=== PATIENT | female | born 1985 | race Caucasian/White ===

== ENCOUNTER 2018-06-26 00:04 | Emergency (ER) | payer OTHER ==
[~2018-06-26] VITALS: Ht 162.6 cm; Wt 108.9 kg
[~2018-06-26 00:04] MED LIST: PRENATAL PO
[2018-06-26] MEDS ORDERED: AMOXICILLIN 50500 MG PO (00:14)
[2018-06-26 00:54] LABS: HEMATOCRIT 32.7 % (37.0-47.0); HEMOGLOBIN 10.5 gm/dL (12.0-15.0); MCH 22.8 pg (26.0-34.0); MCV 71.2 fL (80.0-100.0); RBC 4.6 mil/uL (4.20-5.00); WBC 9.6 thou/uL (4.0-11.0)
[2018-06-26 01:02] LABS: CALCIUM 8.7 mg/dL (8.5-10.1); CREATININE 0.8 mg/dL (0.6-1.0); POTASSIUM 3.5 mmol/L (3.5-5.1)
[2018-06-26] MEDS ORDERED: REGLAN 5 MG TAB5 MG PO (02:00)
[2018-06-26 02:09] VITALS: BP 138/66
== END 2018-06-26 02:10 | disposition home or self-care (01) ==
LOC: ER 00:04
PROVIDERS: Emergency Medicine
DX: H60.91 Unspecified otitis externa, right ear (principal); H66.91 Otitis media, unspecified, right ear; R59.0 Localized enlarged lymph nodes; R42 Dizziness and giddiness